=== PATIENT | male | born 1990 | race American Indian/Alaskan Native ===

== ENCOUNTER 2016-09-20 06:55 | Emergency (ER) | payer MEDICAID ==
[2016-09-20 06:56] VITALS: BMI 23.1
[2016-09-20 07:31] VITALS: BP 130/87; PULSE 77; RESP 17; TEMP 98.3; O2SAT 100
--- NOTE | 2016-09-20 07:44 | ED PDOC ---
Arrival/HPI - General Chief Complaint: Dental Pain Time Seen by Provider: 09/20/16 07:35 - History of Present Illness Narrative History of Present Illness (Text): 09/20/16 07:47 26yo male with L. lower toothache x1 days. Denies f/c or facial swelling. No diff. or pain with swallowing. States he has not seen a dentist. No other complaints. Past Medical History - Provider Review Nursing Documentation Reviewed: Yes - Past History Past History: No Previous - Infectious Disease Hx of Infectious Diseases: None - Tetanus Immunization Tetanus Immunization: Unknown - Past Medical History Past Medical History: No Previous - Cardiac Hx Hypertension: No - Pulmonary Hx Tuberculosis: No - Neurological Hx Seizures: No - HEENT Hx HEENT Disorder: No - Renal Hx Renal Disorder: No - Endocrine/Metabolic Hx Endocrine Disorders: No - Hematological/Oncological Hx Blood Disorders: No - Integumentary Hx Dermatological Disorder: No - Musculoskeletal/Rheumatological Hx Musculoskeletal Disorders: No - Gastrointestinal Hx Gastrointestinal Disorders: No - Genitourinary/Gynecological Hx Genitourinary Disorders: No - Psychiatric Hx Psychophysiologic Disorder: No Hx Substance Use: No - Past Surgical History Past Surgical History: No Previous - Surgical History Hx Orthopedic Surgery: Yes (L THUMB) - Anesthesia Hx Anesthesia: Yes Hx Anesthesia Reactions: No Hx Malignant Hyperthermia: No - Suicidal Assessment Feels Threatened In Home Enviroment: No Family/Social History Family/Social History: Unknown Family HX Smoking Status: Never Smoked Hx Alcohol Use: Yes Frequency of alcohol use: Socially Hx Substance Use: No Hx Substance Use Treatment: No Allergies/Home Meds Allergies/Adverse Reactions: Allergies No Known Allergies Allergy (Verified 09/20/16 07:28) Review of Systems - Physician Review All systems were reviewed & negative as marked: Yes - Review of Systems ENT: Other (toothache) Respiratory: absent: SOB, Cough Cardiovascular: absent: Chest Pain, Palpitations Gastrointestinal: absent: Abdominal Pain, Nausea, Vomiting Physical Exam Vital Signs Reviewed: Yes Vital Signs Temp Pulse Resp BP Pulse Ox 09/20/16 07:29 98.3 F 77 17 130/87 100 Temperature: Afebrile Blood Pressure: Normal Pulse: Regular Respiratory Rate: Normal Appearance: Positive for: Well-Appearing Pain Distress: None Mental Status: Positive for: Alert and Oriented X 3 - Systems Exam Mouth: Present: Moist Mucous Membranes, Normal Lips, Normal Tounge, Other (L. lower molar with tenderness. no facial swelling. no floor of mouth pain or elevation. ). No: Dry, Drooling, Trismus Pharnyx: Present: Normal. No: ERYTHEMA, EXUDATE, Peritonsilar Swelling, Uvular Deviation, Muffled/Hoarse Voice, Strider, Soft Palate/Uvular Edema Medical Decision Making ED Course and Treatment: 09/20/16 07:49 pt with a toothache no facial swelling on exam afebrile abx and pain rx given pt instructed to f/u with a dentist in the next 1-2 days Pt states he understands to return to the ER right away for new or worsening symptoms or for inability to f/u with PMD or specialist as instructed. Patient states that he fully agrees with and understands discharge instructions. States that he agrees with the plan and disposition. Verbalized and repeated discharge instructions and plan. I have given the patient opportunity to ask any additional questions. Disposition/Present on Arrival - Present on Arrival Any Indicators Present on Arrival: No History of DVT/PE: No History of Uncontrolled Diabetes: No Urinary Catheter: No History of Decub. Ulcer: No History Surgical Site Infection Following: None - Disposition Have Diagnosis and Disposition been Completed?: Yes Diagnosis: Pain, dental Disposition: HOME/ ROUTINE Disposition Time: 07:41 Patient Plan: Discharge Condition: GOOD Discharge Instructions (ExitCare): Toothache (ED) Additional Instructions: PLEASE RETURN TO THE EMERGENCY DEPARTMENT FOR NEW OR WORSENING SYMPTOMS. RETURN RIGHT AWAY IF YOU CANNOT FOLLOW UP WITH YOUR PRIMARY CARE DOCTOR, CLINIC, OR SPECIALIST IN 1-2 DAYS. Prescriptions: Ibuprofen [Motrin] 600 mg PO Q8 PRN #12 tab PRN Reason: Pain, Moderate (4-7) Penicillin VK [Pen-Vee K] 500 mg PO QID #28 tab Referrals: Brain Marquez DMD [Staff Provider] - Follow up with primary Forms: [employer] (French), WORK NOTE
== END 2016-09-20 07:45 | disposition home or self-care (01) ==
LOC: ED 06:55
DX: K08.89 Other specified disorders of teeth and supporting structures (principal)
CPT/HCPCS: 96372; 99282; J1885

== ENCOUNTER 2016-12-05 08:08 | Emergency (ER) | payer MEDICAID ==
[2016-12-05 08:08] VITALS: BMI 23.1
[2016-12-05 08:16] VITALS: RESP 18; TEMP 98; O2SAT 99
--- NOTE | 2016-12-05 08:42 | ED PDOC ---
Arrival/HPI - General Historian: Patient <Gal Miller - Last Filed: 12/05/16 10:08> - General Historian: Patient - History of Present Illness Time/Duration: Other (yesterday) Symptom Onset: Sudden Symptom Course: Unchanged Severity Level: 10 <Ced Cruz - Last Filed: 12/05/16 10:16> - General Chief Complaint: Chest Pain Time Seen by Provider: 12/05/16 08:09 - History of Present Illness Narrative History of Present Illness (Text): 26 year male with no significant past medical history who presents with chest pain that woke up him up last night. The pain has been constant, retrosternal, non-radiating, scaled 10/10 in severity, not improved with Motrin, not worsened by anything and not associated with nausea, vomiting, dyspepsia; dyspnea, diaphoresis, or a cough. He further denies any fever, chills, sick contacts, drug use, aside from drinking alcohol which he did last night. He denies any family history of heart disease, any smoking history or substance abuse. 12/05/16 08:32 (Ced Cruz) Past Medical History - Provider Review Nursing Documentation Reviewed: Yes - Past History Past History: No Previous - Infectious Disease Hx of Infectious Diseases: None - Tetanus Immunization Tetanus Immunization: Unknown - Past Medical History Past Medical History: No Previous - Cardiac Hx Hypertension: No - Pulmonary Hx Tuberculosis: No - Neurological Hx Seizures: No - HEENT Hx HEENT Disorder: No - Renal Hx Renal Disorder: No - Endocrine/Metabolic Hx Endocrine Disorders: No - Hematological/Oncological Hx Blood Disorders: No - Integumentary Hx Dermatological Disorder: No - Musculoskeletal/Rheumatological Hx Musculoskeletal Disorders: No - Gastrointestinal Hx Gastrointestinal Disorders: No - Genitourinary/Gynecological Hx Genitourinary Disorders: No - Psychiatric Hx Psychophysiologic Disorder: No Hx Substance Use: No - Past Surgical History Past Surgical History: No Previous - Surgical History Hx Orthopedic Surgery: Yes (L THUMB) - Anesthesia Hx Anesthesia: Yes Hx Anesthesia Reactions: No Hx Malignant Hyperthermia: No - Suicidal Assessment Feels Threatened In Home Enviroment: No <Ced Cruz - Last Filed: 12/05/16 10:16> Family/Social History - Physician Review Nursing Documentation Reviewed: Yes Family/Social History: No Known Family HX Smoking Status: Never Smoked Hx Alcohol Use: Yes Frequency of alcohol use: Socially Hx Substance Use: No Hx Substance Use Treatment: No <Anthony,Nbageovanni - Last Filed: 12/05/16 10:16> Allergies/Home Meds <Gal Miller - Last Filed: 12/05/16 10:08> <AnthonyNbageovanni - Last Filed: 12/05/16 10:16> Allergies/Adverse Reactions: Allergies No Known Allergies Allergy (Verified 12/05/16 08:11) Home Medications: Home Meds Medication Instructions Recorded Confirmed No Known Home Med 12/05/16 12/05/16 Review of Systems - Review of Systems Constitutional: Fatigue. absent: Fevers, Night Sweats Eyes: absent: Vision Changes, Eye Pain Respiratory: absent: SOB, Cough, Sputum, Wheezing Cardiovascular: Chest Pain. absent: Palpitations, Edema, Syncope Gastrointestinal: absent: Abdominal Pain, Nausea, Vomiting Musculoskeletal: absent: Arthralgias, Back Pain, Neck Pain Skin: absent: Rash, Skin Lesions Neurological: absent: Headache, Dizziness, Focal Weakness Endocrine: absent: Diaphoresis Hemo/Lymphatic: absent: Easy Bleeding, Easy Bruising Psychiatric: absent: Anxiety, Depression <Anthony,Cde - Last Filed: 12/05/16 10:16> Physical Exam Temperature: Afebrile Blood Pressure: Hypertensive Pulse: Regular Respiratory Rate: Normal Appearance: Positive for: Non-Toxic Pain Distress: Mild Mental Status: Positive for: Alert and Oriented X 3 - Systems Exam Head: Present: Atraumatic, Normocephalic Pupils: Present: PERRL Conjunctiva: Present: Injected Mouth: Present: Moist Mucous Membranes Pharnyx: Present: Normal. No: ERYTHEMA, EXUDATE Respiratory/Chest: Present: Good Air Exchange, Other (fine crackles ausculated right lung field). No: Wheezes Cardiovascular: Present: Regular Rate and Rhythm, Normal S1, S2 Back: Present: Normal Inspection. No: CVA Tenderness Upper Extremity: Present: Normal Inspection. No: Cyanosis, Edema Lower Extremity: Present: Normal Inspection. No: Edema, CALF TENDERNESS Neurological: Present: CN II-XII Intact, Speech Normal, Motor Func Grossly Intact Skin: Present: Warm, Dry, Normal Color Psychiatric: Present: Alert, Oriented x 3, Normal Insight <Ced Cruz - Last Filed: 12/05/16 10:16> Vital Signs Temp Pulse Resp BP BP Pulse Ox 12/05/16 09:57 95 H 18 149/115 H 99 12/05/16 08:20 163/94 H 12/05/16 08:08 98 F 99 H 18 163/94 H 99 Medical Decision Making - Lab Interpretations I have reviewed the lab results: Yes - EKG Interpretation Interpreted by ED Physician: Yes Type: 12 lead EKG <Gal Miller - Last Filed: 12/05/16 10:08> <Ced Cruz - Last Filed: 12/05/16 10:16> ED Course and Treatment: 12/05/16 10:10 In agreement with resident note, which includes further HPI details. Patient was seen and evaluated with resident, came up with plan and treatment together. 26 year male with no significant past medical history who presents to the emergency department complaining of chest pain that woke up him up last night. (Gal Miller) Diagnostic test including, but not limited to CBC, CMP, D-dimer, Chest X-ray were negative for any clinical significance of the patient's current symptoms. 12/05/16 09:45 (Ced Cruz) - Lab Interpretations Lab Results: 12/05/16 08:40 12/05/16 08:40 Lab Results 12/05/16 08:50: Urine Opiates Screen Negative, Urine Methadone Screen Negative, Ur Barbiturates Screen Negative, Ur Phencyclidine Scrn Negative, Ur Amphetamines Screen Negative, U Benzodiazepines Scrn Negative, U Oth Cocaine Metabols Negative, U Cannabinoids Screen Negative 12/05/16 08:40: Sodium 141, Potassium 3.7, Chloride 102, Carbon Dioxide 28, Anion Gap 15, BUN 18, Creatinine 1.0, Est GFR ( Amer) > 60, Est GFR (Non- Af Amer) > 60, Random Glucose 83, Calcium 9.7, Total Bilirubin 1.0, AST 48, ALT 41, Alkaline Phosphatase 74, Lactate Dehydrogenase 409, Total Creatine Kinase 308 H, CK-MB (CK-2) 2.0, CK-MB (CK-2) % Cancelled, Troponin I < 0.01, Total Protein 7.8, Albumin 4.5, Globulin 3.3, Albumin/Globulin Ratio 1.4 12/05/16 08:40: PT 10.9, INR 1.01, APTT 27.5, D-Dimer, Quantitative 0.19 12/05/16 08:40: WBC 6.1 D, RBC 6.33 H, Hgb 14.4, Hct 44.6, MCV 70.5 L, MCH 22.7 L, MCHC 32.3, RDW 16.4 H, Plt Count 274, MPV 9.1, Gran % 61.1, Lymph % ( Auto) 28.3, King % (Auto) 9.1 H, Eos % (Auto) 1.0 L, Baso % (Auto) 0.5, Gran # 3.71, Lymph # 1.7, King # 0.6, Eos # 0.1, Baso # 0.03 - RAD Interpretation Radiology Orders: 12/05/16 08:31 CHEST PORTABLE [RAD] Stat - Medication Orders Current Medication Orders: Discontinued Medications Ketorolac Tromethamine (Toradol) 30 mg IVP STAT STA Stop: 12/05/16 08:33 Last Admin: 12/05/16 08:47 Dose: 30 mg [facility] Pain Assessment Document 12/05/16 08:47 AD (Rec: 12/05/16 08:47 AD [id number] Pain Reassessment Is this a pain reassessment? No Presence of Pain Presence of Pain Yes Pain Scale Used Pain Scale Used Numeric Location Pain Location Body Site Chest Description Description Constant Intensity of Pain at present 10 Pain Behavior Facial Grimacing IVP Administration Document 12/05/16 08:47 AD (Rec: 12/05/16 08:47 AD [facility] [id number] Charges for Administration # of IVP Administrations 1 Re-Assess: [facility] Pain Assessment Document 12/05/16 09:41 AD (Rec: 12/05/16 09:41 AD [facility] [id number]) Pain Reassessment Is this a pain reassessment? Yes Sleep Is patient sleeping during reassessment? No Presence of Pain Presence of Pain Yes Pain Scale Used Pain Scale Used Numeric Description Intensity of Pain at present 6 - Scribe Statement The provider has reviewed the documentation as recorded by the Scribe <Gal Miller - Last Filed: 12/05/16 10:08> <Ced Cruz - Last Filed: 12/05/16 10:16> - Scribe Statement Julius Walter All medical record entries made by the Scribe were at my direction and personally dictated by me. I have reviewed the chart and agree that the record accurately reflects my personal performance of the history, physical exam, medical decision making, and the department course for this patient. I have also personally directed, reviewed, and agree with the discharge instructions and disposition. (Gal Miller) Disposition/Present on Arrival <Gal Miller - Last Filed: 12/05/16 10:08> - Present on Arrival Any Indicators Present on Arrival: No History of DVT/PE: No History of Uncontrolled Diabetes: No Urinary Catheter: No History of Decub. Ulcer: No History Surgical Site Infection Following: None - Disposition Have Diagnosis and Disposition been Completed?: Yes Disposition Time: 09:48 Patient Plan: Discharge <Ced Cruz - Last Filed: 12/05/16 10:16> - Disposition Diagnosis: Chest pain Disposition: HOME/ ROUTINE Condition: STABLE Discharge Instructions (ExitCare): Chest Pain (ED) Forms: [employer] ([place])
[2016-12-05 08:51] LABS: BASO # 0.03 K/mm3 (0.0-2.0); BASO % 0.5 % (0.0-3.0); EOS # 0.1 (0.0-0.7); GRAN # 3.71 (1.4-6.5); GRAN % 61.1 % (50.0-68.0); HEMATOCRIT 44.6 % (42.0-52.0); LYMPH # 1.7 (1.2-3.4); LYMPH % 28.3 % (22.0-35.0); MEAN CELL VOLUME 70.5 fl (80.0-105.0); MEAN CORPUSCULAR HEMOGLOBIN 22.7 pg (25.0-35.0); MEAN CORPUSCULAR HGB CONC 32.3 g/dl (31.0-37.0); MEAN PLATELET VOLUME 9.1 fl (7.0-11.0); MONO # 0.6 (0.1-0.6); MONO % 9.1 % (1.0-6.0); RED CELL DISTRIBUTION WIDTH 16.4 % (11.5-14.5); WHITE BLOOD COUNT 6.1 10^3/ul (4.5-11.0)
[2016-12-05 08:58] LABS: ALB/GLOB RATIO 1.4 (1.1-1.8); ALKALINE PHOSPHATASE 74 U/L (38-126); ALT/SGPT 41 U/L (7-56); AST/SGOT 48 U/L (17-59); BLOOD UREA NITROGEN 18 mg/dL (7-21); CALCIUM 9.7 mg/dL (8.4-10.5); CARBON DIOXIDE 28 mmol/L (21-33); CHLORIDE 102 mmol/L (98-107); GFR AFRICAN-AMERICAN > 60; GLUCOSE,RANDOM 83 mg/dL (70-110); POTASSIUM 3.7 mmol/L (3.6-5.0); SODIUM 141 mmol/L (132-148); TOTAL PROTEIN 7.8 g/dL (5.8-8.3)
[2016-12-05 09:01] LABS: INR 1.01 (0.93-1.08); PARTIAL THROMBOPLASTIN TIME 27.5 Seconds (23.7-30.8)
--- NOTE | 2016-12-05 09:04 | RAD ---
HISTORY: cp COMPARISON: Comparison chest 05/21/2014 FINDINGS: LUNGS: No active pulmonary disease. PLEURA: No significant pleural effusion identified, no pneumothorax apparent. CARDIOVASCULAR: Normal. OSSEOUS STRUCTURES: No significant abnormalities. VISUALIZED UPPER ABDOMEN: Normal. OTHER FINDINGS: None. IMPRESSION: No active disease.
[2016-12-05 09:10] LABS: TROPONIN I < 0.01 ng/mL
[2016-12-05 09:34] LABS: D DIMER 0.19 mg/L FEU (0-0.50)
[2016-12-05 09:58] VITALS: BP 149/115; PULSE 95
--- NOTE | 2016-12-05 14:31 | CARD ---
APPROVED REPORT EKG Measurement Heart [id number] [place] [id number] [id number] <Conclusion> Normal sinus rhythm Normal ECG
== END 2016-12-05 09:59 | disposition home or self-care (01) ==
LOC: ED 08:08
DX: R07.9 Chest pain, unspecified (principal)
CPT/HCPCS: 71010; 80053; 80324; 80345; 80346; 80349; 80353; 80358; 80361; 82550; 82553; 83615; 83992; 84484; 85025; 85378; 85610; 85730; 93005; 96374; 99284; J1885

== ENCOUNTER 2017-02-16 10:06 | Emergency (ER) | payer MEDICAID ==
[2017-02-16 10:06] VITALS: BMI 23.1
[2017-02-16 10:16] VITALS: PULSE 83; RESP 16; TEMP 98.8; O2SAT 98
--- NOTE | 2017-02-16 10:47 | ED PDOC ---
Arrival/HPI - General Chief Complaint: Back Pain Time Seen by Provider: 02/16/17 10:34 Historian: Patient - History of Present Illness Narrative History of Present Illness (Text): 02/16/17 10:44 26 y/o male, no significant pmh, nkda, c/o neck pain x 2 days with no fall or trauma. Aching pain, aggravated by shoulder movement, no numbness or tingling, no night sweat, no dizziness, no palpitation, no rash, no dizziness, no difficulty swallowing, no neck stiffness, no fever or chills, no headache, no chest pain, no other medical or psychological complaints. Past Medical History - Provider Review Nursing Documentation Reviewed: Yes - Past History Past History: No Previous - Infectious Disease Hx of Infectious Diseases: None - Tetanus Immunization Tetanus Immunization: Unknown - Past Medical History Past Medical History: No Previous - Cardiac Hx Hypertension: No Other/Comment: CHEST PAIN - Pulmonary Hx Respiratory Disorders: No Hx Tuberculosis: No - Neurological Hx Neurological Disorder: No Hx Seizures: No - HEENT Hx HEENT Disorder: No - Renal Hx Renal Disorder: No - Endocrine/Metabolic Hx Endocrine Disorders: No - Hematological/Oncological Hx Blood Disorders: No - Integumentary Hx Dermatological Disorder: No - Musculoskeletal/Rheumatological Hx Musculoskeletal Disorders: No - Gastrointestinal Hx Gastrointestinal Disorders: No - Genitourinary/Gynecological Hx Genitourinary Disorders: No - Psychiatric Hx Psychophysiologic Disorder: No Hx Substance Use: No - Past Surgical History Past Surgical History: No Previous - Surgical History Hx Orthopedic Surgery: Yes (L THUMB) - Anesthesia Hx Anesthesia: Yes - Suicidal Assessment Feels Threatened In Home Enviroment: No Family/Social History - Physician Review Nursing Documentation Reviewed: Yes Family/Social History: Unknown Family HX Smoking Status: Never Smoked Hx Alcohol Use: Yes Hx Substance Use: No Hx Substance Use Treatment: No Allergies/Home Meds Allergies/Adverse Reactions: Allergies No Known Allergies Allergy (Verified 02/16/17 10:12) Review of Systems - Review of Systems Constitutional: absent: Fatigue, Fevers Eyes: absent: Vision Changes ENT: absent: Hearing Changes Respiratory: absent: SOB, Cough Cardiovascular: absent: Chest Pain Gastrointestinal: absent: Abdominal Pain, Diarrhea, Nausea, Vomiting Musculoskeletal: Neck Pain, Myalgias. absent: Arthralgias, Back Pain Skin: absent: Rash, Pruritis, Skin Lesions Neurological: absent: Headache, Dizziness Psychiatric: absent: Anxiety, Depression Physical Exam Vital Signs Reviewed: Yes Vital Signs Temp Pulse Resp BP Pulse Ox 02/16/17 10:12 98.8 F 83 16 147/86 98 Temperature: Afebrile Blood Pressure: Normal Pulse: Regular Respiratory Rate: Normal Appearance: Positive for: Well-Appearing, Non-Toxic, Comfortable Pain Distress: Moderate Mental Status: Positive for: Alert and Oriented X 3 - Systems Exam Head: Present: Atraumatic, Normocephalic Pupils: Present: PERRL Extroacular Muscles: Present: EOMI Conjunctiva: Present: Normal Mouth: Present: Moist Mucous Membranes Neck: Present: Normal Range of Motion, Trachea Midline, Other (Cervical: no midline tenderness or step off, no paraspinal tenderness, there is mild +ttp on the bilateral trapezius muscle regions, FROM without limitation, motor 5/5, sensation intact. ). No: Lymphadenopathy Respiratory/Chest: Present: Clear to Auscultation, Good Air Exchange. No: Respiratory Distress, Accessory Muscle Use Cardiovascular: Present: Regular Rate and Rhythm, Normal S1, S2. No: Murmurs Abdomen: Present: Normal Bowel Sounds. No: Tenderness, Distention, Peritoneal Signs Back: Present: Normal Inspection. No: Midline Tenderness, Paraspinal Tenderness Upper Extremity: Present: Normal Inspection, Normal ROM, NORMAL PULSES, Neurovascularly Intact, Capillary Refill < 2s, Other (Bilateral upper extremities: no tenderness or swelling, no deformities, FROM without limitation , +radial pulse, capillary refill< 2 seconds, neurovascular intact. ). No: Cyanosis, Edema, Tenderness, Swelling, Deformity Lower Extremity: Present: Normal Inspection. No: Edema Neurological: Present: GCS=15, Speech Normal, Motor Func Grossly Intact, Gait Normal, Memory Normal Skin: Present: Warm, Dry, Normal Color. No: Rashes Psychiatric: Present: Alert, Oriented x 3, Normal Insight, Normal Concentration Medical Decision Making ED Course and Treatment: 02/16/17 10:48 -Toradol IM -Negative kernig and brudzinski signs, afebrile -There is no emergent indications for radiology or laboratory studies indicated at this time. -Discharge home with naproxen, flexeril, bed rest, heat compression, follow up with your own pmd and orthopedic/pain management within 2 days, return to the ER for any new or worsening signs or symptoms. - Medication Orders Current Medication Orders: Discontinued Medications Ketorolac Tromethamine (Toradol) 60 mg IM STAT STA Stop: 02/16/17 10:36 - PA / MEDICAL SERVICE TECHNICIAN / Resident Statement / has reviewed & agrees with the documentation as recorded. Disposition/Present on Arrival - Present on Arrival Any Indicators Present on Arrival: No History of DVT/PE: No History of Uncontrolled Diabetes: No Urinary Catheter: No History of Decub. Ulcer: No History Surgical Site Infection Following: None - Disposition Have Diagnosis and Disposition been Completed?: Yes Diagnosis: Trapezius muscle strain Disposition: HOME/ ROUTINE Disposition Time: 10:49 Patient Plan: Discharge Condition: GOOD Additional Instructions: -Discharge home with naproxen, flexeril, bed rest, heat compression, follow up with your own pmd and orthopedic/pain management within 2 days, return to the ER for any new or worsening signs or symptoms. Prescriptions: Cyclobenzaprine [Cyclobenzaprine HCl] 10 mg PO TID PRN #21 tab PRN Reason: Other Naproxen 500 mg PO BID PRN #20 tab PRN Reason: Other Referrals: Cristiano Osborne MD [Staff Provider] - Follow up with primary Forms: WORK NOTE
[2017-02-16 11:18] VITALS: BP 174/86
== END 2017-02-16 11:12 | disposition home or self-care (01) ==
LOC: ED 10:06
DX: S16.1XXA Strain of muscle, fascia and tendon at neck level, initial encounter (principal); X58.XXXA Exposure to other specified factors, initial encounter
CPT/HCPCS: 96372; 99282; J1885

== ENCOUNTER 2017-03-21 14:22 | Emergency (ER) | payer MEDICAID ==
[2017-03-21 14:22] VITALS: BMI 23.1
[2017-03-21 14:36] VITALS: TEMP 98.5; O2SAT 98
--- NOTE | 2017-03-21 15:07 | ED PDOC ---
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, continued to have mid/lower back pain that is not relieved by OTC meds, анна-aguilar, and other forms of medications; pt states pain is > 9/10; pt states has had back pain previously; pt has had xrays and been evaluated in the ED for the same complaints without a diagnosis; pt states, no fever/chills/sweats, no cp/sob/palpitations, no abd pain, no n/v, no numbness/ tingling, no urinary/bowel changes, no incontinence, no rectal/penile numbness/ tingling, no fall/trauma/sick contact, no travel; no prolonged activities; pt denied other complaints pt is here for further eval PMHX: prior hx of back pain Time/Duration: < week (2 days) Symptom Onset: Sudden Symptom Course: Worsening Quality: Tightness, Throbbing Severity Level: 9, Severe Activities at Onset: Rest Context: Walking, Work Past Medical History - Provider Review Nursing Documentation Reviewed: Yes - Travel History Have you recently traveled outside [place] w/in the past 3 mons?: No - Past History Past History: No Previous - Infectious Disease Hx of Infectious Diseases: None - Tetanus Immunization Tetanus Immunization: Unknown - Past Medical History Past Medical History: No Previous - Cardiac Hx Hypertension: No Other/Comment: CHEST PAIN - Pulmonary Hx Respiratory Disorders: No Hx Tuberculosis: No - Neurological Hx Neurological Disorder: No Hx Seizures: No - HEENT Hx HEENT Disorder: No - Renal Hx Renal Disorder: No - Endocrine/Metabolic Hx Endocrine Disorders: No - Hematological/Oncological Hx Blood Disorders: No - Integumentary Hx Dermatological Disorder: No - Musculoskeletal/Rheumatological Hx Musculoskeletal Disorders: No Hx Back Pain: Yes - Gastrointestinal Hx Gastrointestinal Disorders: No - Genitourinary/Gynecological Hx Genitourinary Disorders: No - Psychiatric Hx Psychophysiologic Disorder: No Hx Substance Use: No - Past Surgical History Past Surgical History: No Previous - Surgical History Hx Orthopedic Surgery: Yes (L THUMB) - Anesthesia Hx Anesthesia: Yes - Suicidal Assessment Feels Threatened In Home Enviroment: No Family/Social History - Physician Review Nursing Documentation Reviewed: Yes Family/Social History: No Known Family HX (mother with hx of HTN) Smoking Status: Never Smoked Hx Alcohol Use: Yes Frequency of alcohol use: Socially Hx Substance Use: No Hx Substance Use Treatment: No Allergies/Home Meds Allergies/Adverse Reactions: Allergies No Known Allergies Allergy (Verified 02/16/17 10:12) Review of Systems - Review of Systems Constitutional: Normal Eyes: Normal ENT: Normal Respiratory: Normal Cardiovascular: Normal Gastrointestinal: Normal Genitourinary Male: Normal Musculoskeletal: Back Pain Skin: Normal Neurological: Normal Endocrine: Normal Hemo/Lymphatic: Normal Psychiatric: Normal Physical Exam Vital Signs Reviewed: Yes Vital Signs Temp Pulse Resp BP Pulse Ox 03/21/17 14:34 98.5 F 108 H 18 169/108 H 98 Temperature: Afebrile Blood Pressure: Hypertensive Pulse: Regular Respiratory Rate: Normal Appearance: Positive for: Well-Appearing, Uncomfortable Pain Distress: None Mental Status: Positive for: Alert and Oriented X 3, other (sitting in bed, uncomfortable, alert/awake, GCS = 15, oriented x 3, cooperative, follows commands with ease) - Systems Exam Head: Present: Atraumatic, Normocephalic Pupils: Present: PERRL Extroacular Muscles: Present: EOMI Conjunctiva: Present: Normal Ears: Present: Normal Mouth: Present: Moist Mucous Membranes Pharnyx: Present: Normal Nose (External): Present: Atraumatic Nose (Internal): Present: Normal Inspection Neck: Present: Normal Range of Motion, Trachea Midline. No: MIDLINE TENDERNESS Respiratory/Chest: Present: Clear to Auscultation, Good Air Exchange, Other ( CTA b/l, no w/r/r, no accessory muscle use noted, no tachypenia) Cardiovascular: Present: Regular Rate and Rhythm, Normal S1, S2 Abdomen: Present: Normal Bowel Sounds, Other (thin male, no focal tenderness, no murphys' sign, no mcburney's point tenderness; no masses/rebound/guarding/ rigidity) Back: Present: Midline Tenderness, Other (+ mid/lower thoracic/para-thoracic tenderness, no gross deformities, NO STEP OFF; intact ROM) Upper Extremity: Present: Normal Inspection, Normal ROM, NORMAL PULSES, Neurovascularly Intact, Capillary Refill < 2s. No: Deformity Lower Extremity: Present: Normal Inspection, NORMAL PULSES, Normal ROM, Neurovascularly Intact, Capillary Refill < 2 s, Other (+ ambulatory with min discomfort). No: Deformity Neurological: Present: GCS=15, CN II-XII Intact, Speech Normal, Gait Normal Skin: Present: Warm, Normal Color, Other (cap refill < 1sec, no ulcerations, no petechiae, no rashes) Psychiatric: Present: Alert, Oriented x 3 Medical Decision Making ED Course and Treatment: 03/21/17 15:03 Impression: mid/lower back pain, atraumatic i have consider all the differential diagnosis regarding pt's chief medical complaints/clinical findings, including but are not limited to: mid/lower back pain, atraumatic A/P: atraumatic back pain - observe - supportive care 03/21/17 15:27 pt is doing well pt is not acute distress pt is made aware of his medical results pt is encouraged no heavy weight bearing/prolonged standing pt is encouraged to see PCP for elevated BP pt is encouraged outpt f/u for his intermittent back pain pt will be discharged home Re-evaluation Time: 15:03 Reassessment Condition: Improving,but remains with symptoms Disposition/Present on Arrival - Present on Arrival Any Indicators Present on Arrival: No History of DVT/PE: No History of Uncontrolled Diabetes: No Urinary Catheter: No History of Decub. Ulcer: No History Surgical Site Infection Following: None - Disposition Have Diagnosis and Disposition been Completed?: Yes Diagnosis: Thoracic back pain, Back strain, Elevated blood pressure reading Disposition: HOME/ ROUTINE Disposition Time: 15:08 Patient Plan: Discharge Patient Problems: Current Active Problems Problem Status Onset Thoracic back pain Acute Back strain Acute Elevated blood pressure reading Acute Condition: STABLE Discharge Instructions (ExitCare): Hypotension (ED), Hypertension (ED), Back Pain (ED) Print Language: [place] CITIZEN Additional Instructions: Make sure to see your doctor in 1-2 days DRINK PLENTY OF FLUIDS AVOID heavy weight bearing AVOID prolonged standing take your medications as prescribed RETURN TO ED IF worse pain, cant breath, persistent vomiting, cant walk, cant feel legs, severe numbness/tingling, high fever >101-102 for hours, altered behavior, unable to urinate, heavy/persistent bleeding, passing out, chest pain , or other medical emergencies Prescriptions: diaZEpam [Valium] 5 mg PO TID PRN #12 tab PRN Reason: Muscle Spasm Ibuprofen [Motrin] 600 mg PO TID PRN #30 tab PRN Reason: Pain, Mild (1-3) oxyCODONE/Acetaminophen [Percocet 5/325 mg Tab] 1 tab PO QID PRN #12 tab PRN Reason: Pain, Moderate (4-7) Referrals: Elicia Gill MD [Staff Provider] - Follow up with primary Fer Robins MD [Staff Provider] - Follow up with primary Forms: [facility] (Belarusian), WORK NOTE
[2017-03-21 15:32] VITALS: BP 154/108; PULSE 95; RESP 17
== END 2017-03-21 15:32 | disposition home or self-care (01) ==
LOC: ED 14:22
DX: S29.012A Strain of muscle and tendon of back wall of thorax, initial encounter (principal); X50.1XXA Overexertion from prolonged static or awkward postures, initial encounter; Y92.89 Other specified places as the place of occurrence of the external cause; M54.6 Pain in thoracic spine; R03.0 Elevated blood-pressure reading, without diagnosis of hypertension

== ENCOUNTER 2017-06-09 12:04 | Emergency (ER) | payer MEDICAID ==
[2017-06-09 12:05] VITALS: BMI 23.1
[2017-06-09 12:19] VITALS: BP 181/80; PULSE 87; RESP 18; TEMP 98.9; O2SAT 100
--- NOTE | 2017-06-09 12:24 | ED PDOC ---
Arrival/HPI - General Chief Complaint: Dental Pain Time Seen by Provider: 06/09/17 12:17 Historian: Patient - History of Present Illness Narrative History of Present Illness (Text): 06/09/17 12:21 This 27 yo male who denies pmh, presents to this emergency department complaining of left lower toothache since yesterday. Patient stated pain has worsen today, and he feels face mild swollen since this morning. Patient denies fever, shortness of breath chest pain, abdominal pain, headache, dizziness sick contact, recent travel or dental trauma. Time/Duration: Other (see hpi) Context: Home Past Medical History - Provider Review Nursing Documentation Reviewed: Yes - Past History Past History: No Previous - Infectious Disease Hx of Infectious Diseases: None - Tetanus Immunization Tetanus Immunization: Unknown - Past Medical History Past Medical History: No Previous - Cardiac Hx Cardiac Disorders: No - Pulmonary Hx Respiratory Disorders: No - Neurological Hx Neurological Disorder: No - HEENT Hx HEENT Disorder: No - Renal Hx Renal Disorder: No - Endocrine/Metabolic Hx Endocrine Disorders: No - Hematological/Oncological Hx Blood Disorders: No - Integumentary Hx Dermatological Disorder: No - Musculoskeletal/Rheumatological Hx Back Pain: Yes - Gastrointestinal Hx Gastrointestinal Disorders: No - Genitourinary/Gynecological Hx Genitourinary Disorders: No - Psychiatric Hx Psychophysiologic Disorder: No Hx Substance Use: No - Past Surgical History Past Surgical History: No Previous - Surgical History Hx Orthopedic Surgery: Yes (L THUMB) - Anesthesia Hx Anesthesia: Yes - Suicidal Assessment Feels Threatened In Home Enviroment: No Family/Social History - Physician Review Nursing Documentation Reviewed: Yes Family/Social History: Other (noncontributory) Smoking Status: Never Smoked Hx Alcohol Use: Yes Frequency of alcohol use: Socially Hx Substance Use: No Hx Substance Use Treatment: No Allergies/Home Meds Allergies/Adverse Reactions: Allergies No Known Allergies Allergy (Verified 06/09/17 12:19) Review of Systems - Review of Systems Constitutional: Normal. absent: Fatigue, Weight Change, Fevers Eyes: Normal ENT: Other (dental pain) Respiratory: Normal. absent: SOB, Cough Cardiovascular: Normal. absent: Chest Pain, Palpitations Gastrointestinal: Normal. absent: Abdominal Pain, Nausea, Vomiting Genitourinary Male: Normal. absent: Dysuria, Frequency Musculoskeletal: Normal. absent: Back Pain, Neck Pain, Myalgias Skin: Normal. absent: Rash Neurological: Normal. absent: Headache, Dizziness, Focal Weakness, Gait Changes , Speech Changes, Facial Droop, Disequilibrium, Seizure Endocrine: Normal Hemo/Lymphatic: Normal Psychiatric: Normal Physical Exam Vital Signs Temp Pulse Resp BP Pulse Ox 06/09/17 12:19 98.9 F 87 18 181/80 H 100 Temperature: Afebrile Blood Pressure: Normal Pulse: Regular Respiratory Rate: Normal Appearance: Positive for: Well-Appearing, Non-Toxic, Comfortable Pain Distress: None Mental Status: Positive for: Alert and Oriented X 3 - Systems Exam Head: Present: Atraumatic, Normocephalic Pupils: Present: PERRL Extroacular Muscles: Present: EOMI Conjunctiva: Present: Normal Mouth: Present: Moist Mucous Membranes, Normal Lips, Normal Tounge, Other ( Generalized dental caries. More on the left lower tooth # 20 with mild gum swelling. ). No: Drooling, Trismus Pharnyx: Present: Normal. No: ERYTHEMA, EXUDATE, TONSILS ENLARGED Neck: Present: Normal Range of Motion Respiratory/Chest: Present: Clear to Auscultation, Good Air Exchange. No: Respiratory Distress, Accessory Muscle Use Cardiovascular: Present: Regular Rate and Rhythm, Normal S1, S2. No: Murmurs Abdomen: No: Tenderness, Distention, Peritoneal Signs Back: Present: Normal Inspection Upper Extremity: Present: Normal Inspection. No: Cyanosis, Edema Lower Extremity: Present: Normal Inspection. No: Edema Neurological: Present: GCS=15, CN II-XII Intact, Speech Normal Skin: Present: Warm, Dry, Normal Color. No: Rashes Psychiatric: Present: Alert, Oriented x 3, Normal Insight, Normal Concentration Medical Decision Making ED Course and Treatment: 06/09/17 12:29 Re-evaluation. Patient feels better. Discussed results and plan with patient who expresses understanding. All questions answered and there is agreement with the plan to discharge home with instructions. Patient stable for discharge. Return if symptoms persist or worsen. 06/09/17 12:30 Patient stated he has an appointment to see his dentist in 2 days. Re-evaluation Time: 12:29 Reassessment Condition: Re-examined, Improved Disposition/Present on Arrival - Present on Arrival Any Indicators Present on Arrival: No History of DVT/PE: No History of Uncontrolled Diabetes: No Urinary Catheter: No History of Decub. Ulcer: No History Surgical Site Infection Following: None - Disposition Have Diagnosis and Disposition been Completed?: Yes Diagnosis: Dental caries Disposition: HOME/ ROUTINE Disposition Time: 12:30 Patient Plan: Discharge Condition: GOOD Discharge Instructions (ExitCare): Tooth Decay, Adult (DC) Additional Instructions: Call private doctor for follow up visit in 1-2 days. Take medication as instructed. Return to emergency if symptoms worsen. Make sure to see your dentist in 2 days as arranged by you. Prescriptions: Chlorhexidine 0.12% [Peridex] 15 ml PO BID #1 bottle Clindamycin [Cleocin] 300 mg PO QID #28 cap Naproxen 500 mg PO BID PRN #14 tab PRN Reason: Pain, Severe (8-10) Referrals: [facility] [Outside] - Follow up with primary [facility] [Outside] - Follow up with primary Forms: [facility] (Spanish), WORK NOTE
== END 2017-06-09 12:39 | disposition home or self-care (01) ==
LOC: ED 12:04
DX: K02.9 Dental caries, unspecified (principal)

== ENCOUNTER 2017-07-14 10:35 | Emergency (ER) | payer MEDICAID ==
[2017-07-14 10:36] VITALS: BMI 23.1
[2017-07-14 11:02] VITALS: RESP 18; TEMP 98.3; O2SAT 99
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
--- NOTE | 2017-07-14 11:55 | CT ---
PROCEDURE: CT HEAD WITHOUT CONTRAST. HISTORY: Headache COMPARISON: 12/06/2011 TECHNIQUE: Axial computed tomography images were obtained through the head/brain without intravenous contrast. Coronal and sagittal reconstructed images. Radiation dose: Total exam DLP = 973.98 mGy-cm. This CT exam was performed using one or more of the following dose reduction techniques: Automated exposure control, adjustment of the mA and/or kV according to patient size, and/or use of iterative reconstruction technique. FINDINGS: HEMORRHAGE: No intracranial hemorrhage. BRAIN: No mass effect or edema. No atrophy or chronic microvascular ischemic changes. VENTRICLES: Unremarkable. No hydrocephalus. CALVARIUM: Unremarkable. PARANASAL SINUSES: Unremarkable as visualized. No significant inflammatory changes. MASTOID AIR CELLS: Unremarkable as visualized. No inflammatory changes. OTHER FINDINGS: None. IMPRESSION: No acute intracranial abnormalities. No significant findings to account for the clinical presentation. [place] for change
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
[2017-07-14 12:58] VITALS: BP 138/81; PULSE 68
== END 2017-07-14 13:22 | disposition home or self-care (01) ==
LOC: ED 10:35
DX: S02.40FA Zygomatic fracture, left side, initial encounter for closed fracture (principal); W22.8XXA Striking against or struck by other objects, initial encounter; Y92.9 Unspecified place or not applicable

== ENCOUNTER 2017-07-21 13:11 | Emergency (ER) | payer MEDICAID ==
[2017-07-21 13:13] VITALS: BMI 23.1
[2017-07-21 13:19] VITALS: TEMP 98.9; O2SAT 99
--- NOTE | 2017-07-21 13:44 | ED PDOC ---
Arrival/HPI - General Chief Complaint: Med Refill Time Seen by Provider: 07/21/17 13:31 Historian: Patient - History of Present Illness Narrative History of Present Illness (Text): 07/21/17 13:41 Patient is a 27 year old male who presents to emergency department complaining of continuing pain secondary to zygomatic arch fracture. Patient presented to emergency department last week for zygomatic arch fracture and was instructed to follow up with an ENT physician in 1-2 days and was prescribed pain medication. Since his last visit patient hasn't followed up with ENT and states finishing his initial prescription with no alleviation of his pain. Patient denies any new symptoms and requests medication refill. Time/Duration: > week Symptom Course: Unchanged Past Medical History - Provider Review Nursing Documentation Reviewed: Yes - Past History Past History: No Previous - Infectious Disease Hx of Infectious Diseases: None - Tetanus Immunization Tetanus Immunization: Unknown - Past Medical History Past Medical History: No Previous - Cardiac Hx Cardiac Disorders: No - Pulmonary Hx Respiratory Disorders: No - Neurological Hx Neurological Disorder: No - HEENT Hx HEENT Disorder: No - Renal Hx Renal Disorder: No - Endocrine/Metabolic Hx Endocrine Disorders: No - Hematological/Oncological Hx Blood Disorders: No - Integumentary Hx Dermatological Disorder: No - Musculoskeletal/Rheumatological Hx Back Pain: Yes Hx Fractures: Yes - Gastrointestinal Hx Gastrointestinal Disorders: No - Genitourinary/Gynecological Hx Genitourinary Disorders: No - Psychiatric Hx Psychophysiologic Disorder: No Hx Substance Use: No - Past Surgical History Past Surgical History: No Previous - Surgical History Hx Orthopedic Surgery: Yes (L THUMB) - Anesthesia Hx Anesthesia: Yes - Suicidal Assessment Feels Threatened In Home Enviroment: No Family/Social History - Physician Review Nursing Documentation Reviewed: Yes Family/Social History: No Known Family HX Smoking Status: Never Smoked Hx Alcohol Use: Yes Hx Substance Use: No Hx Substance Use Treatment: No Allergies/Home Meds Allergies/Adverse Reactions: Allergies No Known Allergies Allergy (Verified 07/21/17 13:15) Review of Systems - Physician Review All systems were reviewed & negative as marked: Yes - Review of Systems Constitutional: absent: Fevers Cardiovascular: absent: Chest Pain Physical Exam - Physical Exam Narrative Physical Exam (Text): 07/21/17 13:46 Constitutional: No acute distress. Head: Normocephalic. Eyes: PERRL. ENT: Moist mucous membranes. Neck: Supple. Musculoskeletal: No swelling of extremities. Skin: No rash. Neurologic: Alert, no focal deficit. Vital Signs Reviewed: Yes Vital Signs Temp Pulse Resp BP Pulse Ox 07/21/17 13:16 98.9 F 77 16 150/92 H 99 Temperature: Afebrile Blood Pressure: Hypertensive Pulse: Regular Respiratory Rate: Normal Appearance: Positive for: Well-Appearing Mental Status: Positive for: Alert and Oriented X 3 Medical Decision Making ED Course and Treatment: 07/21/17 13:47 Impression: Patient is a 27 year old male complaining of continuing pain associated with zygomatic arch fracture. Plan: --Tramadol prescription refilled --Instructed patient to follow up with ENT Prior Visits: Notes and results from previous visits were reviewed. Patient was last seen in the emergency department on 07/14/17 for zygomatic arch fracture and was discharged home with Tramadol prescription. Progress Notes: I encouraged patient to obtain follow up with ENT physician. Given acuity of pain this will be patients second prescription for pain and he was advised of the risks. Patient is stable for discharge. - Scribe Statement The provider has reviewed the documentation as recorded by the Scribe Will Howard Provider Scribe Attestation: All medical record entries made by the Scribe were at my direction and personally dictated by me. I have reviewed the chart and agree that the record accurately reflects my personal performance of the history, physical exam, medical decision making, and the department course for this patient. I have also personally directed, reviewed, and agree with the discharge instructions and disposition. Disposition/Present on Arrival - Present on Arrival Any Indicators Present on Arrival: No History of DVT/PE: No History of Uncontrolled Diabetes: No Urinary Catheter: No History of Decub. Ulcer: No History Surgical Site Infection Following: None - Disposition Have Diagnosis and Disposition been Completed?: Yes Diagnosis: Zygomatic arch fracture Disposition: HOME/ ROUTINE Disposition Time: 13:37 Patient Plan: Discharge Patient Problems: Current Active Problems Problem Status Onset Zygomatic arch fracture Acute Condition: STABLE Discharge Instructions (ExitCare): Skull and Facial Fractures Prescriptions: traMADol [Ultram] 1 tab PO Q6H #6 tab Referrals: Abram Coleman DO [Staff Provider] - Follow up with primary Forms: [employer] ([place])
[2017-07-21 14:00] VITALS: BP 145/82; PULSE 70; RESP 18
== END 2017-07-21 14:00 | disposition home or self-care (01) ==
LOC: ED 13:11
DX: S02.402A Zygomatic fracture, unspecified side, initial encounter for closed fracture (principal); X58.XXXA Exposure to other specified factors, initial encounter

== ENCOUNTER 2017-07-28 10:46 | Emergency (ER) | payer MEDICAID ==
[2017-07-28 10:47] VITALS: BMI 23.1
[2017-07-28 11:10] VITALS: RESP 18; TEMP 98.2; O2SAT 100
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
[2017-07-28 12:29] VITALS: BP 152/81; PULSE 79
== END 2017-07-28 12:30 | disposition home or self-care (01) ==
LOC: ED 10:46
DX: S02.402D Zygomatic fracture, unspecified side, subsequent encounter for fracture with routine healing (principal); X58.XXXD Exposure to other specified factors, subsequent encounter; R51 Headache; Z76.0 Encounter for issue of repeat prescription; R03.0 Elevated blood-pressure reading, without diagnosis of hypertension

== ENCOUNTER 2017-10-05 11:54 | Emergency (ER) | payer MEDICAID ==
[2017-10-05 11:54] VITALS: BMI 23.1
[2017-10-05 12:31] VITALS: BP 130/86; PULSE 88; RESP 16; TEMP 99.1; O2SAT 100
--- NOTE | 2017-10-05 12:33 | ED PDOC ---
Arrival/HPI - General Time Seen by Provider: 10/05/17 12:29 Historian: Patient - History of Present Illness Narrative History of Present Illness (Text): 10/05/17 12:29 This 27 yo male with pmh dental caries, presents to this ED c/o left posterior lower toothache x 1 day. Patient admits multiple dental pain in the past. Patient stated he made an appointment to see dentist in 2 days. Patient denies other somatic complains. Time/Duration: Other (see hpi) Quality: Aching Context: Home Past Medical History - Provider Review Nursing Documentation Reviewed: Yes - Past History Past History: No Previous - Infectious Disease Hx of Infectious Diseases: None - Tetanus Immunization Tetanus Immunization: Unknown - Past Medical History Past Medical History: No Previous - Cardiac Hx Cardiac Disorders: No - Pulmonary Hx Respiratory Disorders: No - Neurological Hx Neurological Disorder: No - HEENT Hx HEENT Disorder: No - Renal Hx Renal Disorder: No - Endocrine/Metabolic Hx Endocrine Disorders: No - Hematological/Oncological Hx Blood Disorders: No - Integumentary Hx Dermatological Disorder: No - Musculoskeletal/Rheumatological Hx Back Pain: Yes Hx Fractures: Yes - Gastrointestinal Hx Gastrointestinal Disorders: No - Genitourinary/Gynecological Hx Genitourinary Disorders: No - Psychiatric Hx Psychophysiologic Disorder: No Hx Substance Use: No - Past Surgical History Past Surgical History: No Previous - Surgical History Hx Orthopedic Surgery: Yes (L THUMB) - Anesthesia Hx Anesthesia: Yes - Suicidal Assessment Feels Threatened In Home Enviroment: No Family/Social History - Physician Review Nursing Documentation Reviewed: Yes Family/Social History: Other (noncontributory) Smoking Status: Never Smoked Hx Alcohol Use: Yes Hx Substance Use: No Hx Substance Use Treatment: No Allergies/Home Meds Allergies/Adverse Reactions: Allergies No Known Allergies Allergy (Verified 07/21/17 13:15) Review of Systems - Review of Systems Constitutional: Normal. absent: Fatigue, Weight Change, Fevers, Night Sweats Eyes: Normal ENT: Other (dental pain) Respiratory: Normal Cardiovascular: Normal Gastrointestinal: Normal Genitourinary Male: Normal Musculoskeletal: Normal Skin: Normal Neurological: Normal Endocrine: Normal Hemo/Lymphatic: Normal Psychiatric: Normal Physical Exam Temperature: Afebrile Blood Pressure: Normal Pulse: Regular Respiratory Rate: Normal Appearance: Positive for: Well-Appearing, Non-Toxic, Comfortable Pain Distress: None Mental Status: Positive for: Alert and Oriented X 3 - Systems Exam Head: Present: Atraumatic, Normocephalic Pupils: Present: PERRL Extroacular Muscles: Present: EOMI Conjunctiva: Present: Normal Mouth: Present: Moist Mucous Membranes, Normal Lips, Normal Tounge, Other ( diffused dental caries. Mild gum swelling around a broken/caries # 19. No facial swelling.). No: Drooling, Trismus Pharnyx: Present: Normal. No: ERYTHEMA, EXUDATE, TONSILS ENLARGED, Peritonsilar Swelling, Uvular Deviation, Muffled/Hoarse Voice, Strider, Soft Palate/Uvular Edema Neck: Present: Normal Range of Motion, Trachea Midline. No: Meningeal Signs, MIDLINE TENDERNESS, Paraspinal Tenderness, Lymphadenopathy Respiratory/Chest: Present: Clear to Auscultation, Good Air Exchange. No: Respiratory Distress, Accessory Muscle Use, Wheezes, Decreased Breath Sounds, Rales, Retracting, Rhonchi Cardiovascular: Present: Regular Rate and Rhythm, Normal S1, S2. No: Murmurs Upper Extremity: Present: Normal Inspection, Normal ROM Lower Extremity: Present: Normal Inspection, Normal ROM Neurological: Present: GCS=15, CN II-XII Intact, Speech Normal, Motor Func Grossly Intact, Normal Sensory Function, Normal Cerebellar Funct, Gait Normal, Memory Normal Skin: Present: Warm, Dry, Normal Color. No: Rashes Psychiatric: Present: Alert, Oriented x 3, Normal Insight, Normal Concentration Medical Decision Making ED Course and Treatment: 10/05/17 12:33 Re-evaluation. Patient feels better. Discussed results and plan with patient who expresses understanding. All questions answered and there is agreement with the plan to discharge home with instructions. Patient stable for discharge. Return if symptoms persist or worsen. Patient was recommended to take medication as instructed, and to return to ED if symptoms worsen. To make sure to see his dentist in 2 days as arranged by patient. Re-evaluation Time: 12:34 Reassessment Condition: Re-examined, Unchanged Disposition/Present on Arrival - Present on Arrival Any Indicators Present on Arrival: No History of DVT/PE: No History of Uncontrolled Diabetes: No Urinary Catheter: No History Surgical Site Infection Following: None - Disposition Have Diagnosis and Disposition been Completed?: Yes Diagnosis: Pain due to dental caries Disposition: HOME/ ROUTINE Disposition Time: 12:35 Patient Plan: Discharge Patient Problems: Current Active Problems Problem Status Onset Pain due to dental caries Acute Condition: GOOD Discharge Instructions (ExitCare): Dental Pain (DC) Additional Instructions: Call private doctor for follow up visit in 1-2 days. Take medication as instructed. Return to emergency if symptoms worsen. Make sure to see your dentist this as arranged by you. Prescriptions: Chlorhexidine 0.12% [Peridex] 15 ml PO BID #1 bottle Clindamycin [Cleocin] 300 mg PO TID #30 cap Naproxen 500 mg PO BID PRN #14 tablet PRN Reason: Pain, Severe (8-10) Referrals: Damir Lomeli MD [Primary Care Provider] - Follow up with primary
== END 2017-10-05 12:56 | disposition home or self-care (01) ==
LOC: ED 11:54
DX: K02.9 Dental caries, unspecified (principal)

== ENCOUNTER 2017-10-27 11:07 | Emergency (ER) | payer MEDICAID ==
[2017-10-27 11:07] VITALS: BMI 23.1
[2017-10-27 11:45] VITALS: RESP 18; O2SAT 100
[2017-10-27] MEDS ORDERED: Oxycodone/Acetaminophen 5/325 mg Tab PO STA (12:00)
--- NOTE | 2017-10-27 12:07 | ED PDOC ---
Arrival/HPI - General Chief Complaint: Dental Pain Time Seen by Provider: 10/27/17 12:00 Historian: Patient - History of Present Illness Narrative History of Present Illness (Text): 10/27/17 12:04 27 y/o male, no significant pmh, nkda, c/o lt. lower dental pain x 2 weeks. Pt. stated that he is scheduled to see the dentist for dental extraction but unable to see the dentist today, no fever or chills, no difficulty swallowing, no night sweat, no rash, no numbness or tingling, no chin swelling, no other medical or psychological complaints. Past Medical History - Provider Review Nursing Documentation Reviewed: Yes - Past History Past History: No Previous - Infectious Disease Hx of Infectious Diseases: None - Tetanus Immunization Tetanus Immunization: Unknown - Past Medical History Past Medical History: No Previous - Cardiac Hx Cardiac Disorders: No - Pulmonary Hx Respiratory Disorders: No - Neurological Hx Neurological Disorder: No - HEENT Hx HEENT Disorder: No - Renal Hx Renal Disorder: No - Endocrine/Metabolic Hx Endocrine Disorders: No - Hematological/Oncological Hx Blood Disorders: No - Integumentary Hx Dermatological Disorder: No - Musculoskeletal/Rheumatological Hx Back Pain: Yes Hx Fractures: Yes - Gastrointestinal Hx Gastrointestinal Disorders: No - Genitourinary/Gynecological Hx Genitourinary Disorders: No - Psychiatric Hx Psychophysiologic Disorder: No Hx Substance Use: No - Past Surgical History Past Surgical History: No Previous - Surgical History Hx Orthopedic Surgery: Yes (L THUMB) - Anesthesia Hx Anesthesia: Yes Hx Anesthesia Reactions: No Hx Malignant Hyperthermia: No - Suicidal Assessment Feels Threatened In Home Enviroment: No Family/Social History - Physician Review Nursing Documentation Reviewed: Yes Family/Social History: Unknown Family HX Smoking Status: Never Smoked Hx Alcohol Use: Yes Hx Substance Use: No Hx Substance Use Treatment: No Allergies/Home Meds Allergies/Adverse Reactions: Allergies No Known Allergies Allergy (Verified 07/21/17 13:15) Review of Systems - Review of Systems Constitutional: absent: Fatigue, Fevers Eyes: absent: Vision Changes ENT: Other (+dental pain). absent: Hearing Changes Respiratory: absent: SOB, Cough Cardiovascular: absent: Chest Pain Gastrointestinal: absent: Abdominal Pain, Nausea, Vomiting Musculoskeletal: absent: Arthralgias, Back Pain Skin: absent: Rash, Pruritis Neurological: absent: Headache, Dizziness Psychiatric: absent: Anxiety, Depression, Suicidal Ideation Physical Exam Vital Signs Reviewed: Yes Vital Signs Temp Pulse Resp BP Pulse Ox 10/27/17 12:39 74 18 138/75 100 10/27/17 11:41 98.2 F 79 18 142/95 H 100 Temperature: Afebrile Blood Pressure: Hypertensive Pulse: Regular Respiratory Rate: Normal Appearance: Positive for: Well-Appearing, Non-Toxic Pain Distress: Moderate Mental Status: Positive for: Alert and Oriented X 3 - Systems Exam Head: Present: Atraumatic, Normocephalic Pupils: Present: PERRL Extroacular Muscles: Present: EOMI Conjunctiva: Present: Normal Mouth: Present: Moist Mucous Membranes Pharnyx: Present: Other (visible multiple cracked and brown discolroation of dental caries noted on the left lower molar, no gingival abscess or gingivitis, no chin swelling. ). No: ERYTHEMA, EXUDATE, TONSILS ENLARGED Neck: Present: Normal Range of Motion Respiratory/Chest: Present: Clear to Auscultation, Good Air Exchange. No: Respiratory Distress, Accessory Muscle Use Cardiovascular: Present: Regular Rate and Rhythm, Normal S1, S2. No: Murmurs Abdomen: No: Tenderness, Distention, Peritoneal Signs Back: Present: Normal Inspection Upper Extremity: Present: Normal Inspection. No: Cyanosis, Edema Lower Extremity: Present: Normal Inspection. No: Edema Neurological: Present: GCS=15, CN II-XII Intact, Speech Normal, Motor Func Grossly Intact, Gait Normal, Memory Normal Skin: Present: Warm, Dry, Normal Color. No: Rashes Lymphatic: No: Cervical Adenopathy, Axillary Adenopathy Psychiatric: Present: Alert, Oriented x 3, Normal Insight, Normal Concentration Medical Decision Making ED Course and Treatment: 10/27/17 12:06 -Unasyn/toradol/percocet 10/27/17 14:05 -Pt. feels much better, eating and drinking well. -I reviewed the [facility] report, patient have many narcotic prescription received from this ER. -Discharge home with augmentin, ibuprofen, salt water gargling, please follow up with your own dentist within 2 days, return to the ER for any new or worsening signs or symptoms. - Medication Orders Current Medication Orders: Discontinued Medications Ampicillin Sodium/Sulbactam (Sodium 3 gm/ Sodium Chloride) 100 mls @ 100 mls/ hr IVPB STAT STA PRN Reason: Protocol Stop: 10/27/17 12:59 Last Admin: 10/27/17 13:03 Dose: 100 mls/hr eMAR Start Stop Document 10/27/17 13:03 HI (Rec: 10/27/17 13:[id number] Intravenous Solution Start Date 10/27/17 Start Time 13:03 Ketorolac Tromethamine (Toradol) 30 mg IVP STAT STA Stop: 10/27/17 12:01 Last Admin: 10/27/17 13:03 Dose: 30 mg MAR Pain Assessment Document 10/27/17 13:03 HI (Rec: 10/27/17 13:[id number] Pain Reassessment Is this a pain reassessment? No Sleep Is patient sleeping during reassessment? No Presence of Pain Presence of Pain Yes IVP Administration Document 10/27/17 13:03 HI (Rec: 10/27/17 13:[id number] Charges for Administration # of IVP Administrations 1 Oxycodone/Acetaminophen (Percocet 5/325 Mg Tab) 1 tab PO STAT STA Stop: 10/27/17 12:01 Last Admin: 10/27/17 13:03 Dose: 1 tab MAR Pain Assessment Document 10/27/17 13:03 HI (Rec: 10/27/17 13:[id number] Pain Reassessment Is this a pain reassessment? No Sleep Is patient sleeping during reassessment? 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 Disposition/Present on Arrival - Present on Arrival Any Indicators Present on Arrival: No History of DVT/PE: No History of Uncontrolled Diabetes: No Urinary Catheter: No History of Decub. Ulcer: No History Surgical Site Infection Following: None - Disposition Have Diagnosis and Disposition been Completed?: Yes Diagnosis: Dental caries, Pain, dental Disposition: HOME/ ROUTINE Disposition Time: 14:06 Patient Plan: Discharge Patient Problems: Current Active Problems Problem Status Onset Dental caries Acute Pain, dental Acute Condition: IMPROVED Additional Instructions: -Discharge home with augmentin, ibuprofen, salt water gargling, please follow up with your own dentist within 2 days, return to the ER for any new or worsening signs or symptoms. Prescriptions: Amoxicillin/Clavulanate [Augmentin 875 MG-125 MG] 1 tab PO BID #20 tab Ibuprofen [Motrin Tab] 800 mg PO TID PRN #30 tab PRN Reason: Other Referrals: [facility] at [facility] [place] [Outside] - Follow up with primary Forms: [employer] (Danish), WORK NOTE
[2017-10-27 18:27] VITALS: BP 132/87; PULSE 75; TEMP 98.1
== END 2017-10-27 14:30 | disposition home or self-care (01) ==
LOC: ED 11:07
DX: K02.9 Dental caries, unspecified (principal)
CPT/HCPCS: 96374; 99283; J0295; J1885

== ENCOUNTER 2018-03-29 13:43 | Emergency (ER) | payer MEDICAID ==
[2018-03-29 13:45] VITALS: BMI 23.1
[2018-03-29 14:27] VITALS: BP 144/99; PULSE 92; RESP 18; TEMP 98.1; O2SAT 100
== END 2018-03-29 17:36 | disposition left against medical advice (07) ==
LOC: ED 13:43
DX: Z02.89 Encounter for other administrative examinations (principal); Z00.00 Encounter for general adult medical examination without abnormal findings